=== PATIENT | female | born 1980 | race American Indian/Alaskan Native ===

== ENCOUNTER 2019-08-05 19:49 | Inpatient (IN) | payer OTHER ==
[2019-08-05] MEDS ORDERED: MORPHINE 4 MG/1 ML INJ IV ONE (20:51)
[2019-08-05] MEDS ORDERED: SODIUM CHLORIDE 0.9% 1000 ML 1,000 ML IV ONE (20:51)
[2019-08-05] MEDS ORDERED: ONDANSETRON 4 MG/2 ML INJ IV ONE (20:51)
[2019-08-05 21:03] LABS: Basophils # (Auto) 0.1 K/mm3 (0.0-0.1); Basophils % (Auto) 0.7 % (0.0-1.8); Eosinophils # (Auto) 0.1 K/mm3 (0.0-0.4); Eosinophils % (Auto) 1.3 % (0.0-4.3); Hematocrit 43.1 % (30.3-42.9); Hemoglobin 14.3 gm/dl (10.1-14.3); Lymphocytes # (Auto) 2.7 K/mm3 (1.2-5.4); Lymphocytes % (Auto) 30.6 % (13.4-35.0); Mean Corpuscular HGB Conc 33 % (30-34); Mean Corpuscular Volume 94 fl (79-97); Monocytes # (Auto) 0.5 K/mm3 (0.0-0.8); Monocytes % (Auto) 5.9 % (0.0-7.3); Platelet Count 299 K/mm3 (140-440); Red Blood Count 4.59 M/mm3 (3.65-5.03); Red Cell Distribution Width 13.7 % (13.2-15.2)
[2019-08-05 21:14] LABS: INR 1.01 (0.87-1.13)
[2019-08-05 21:15] LABS: Partial Thromboplastin Time 26.3 Sec. (24.2-36.6)
[2019-08-05 21:18] LABS: Alanine Aminotransferase 23 units/L (7-56); Albumin 4.2 g/dL (3.9-5); BUN/Creatinine Ratio 16; Blood Urea Nitrogen 13 mg/dL (7-17); Calcium 9.5 mg/dL (8.4-10.2); Hemolysis Index 39
--- NOTE | 2019-08-05 21:58 | Emergency Department Report ---
ED Abdominal Pain HPI - General Chief Complaint: Abdominal Pain Stated Complaint: ABDOMINAL PAIN Time Seen by Provider: 08/05/19 20:34 Source: patient, EMS Mode of arrival: Stretcher Limitations: No Limitations - History of Present Illness Initial Comments: 38-year-old female the past medical history of non-insulin depended diabetes, metformin, gallstones status post cholecystectomy presents to the hospital complaining of abdominal pain. Patient via ambulance will call out to the [facility] by her boyfriend with complaint of abdominal pain and bloody stools. Patient's eyes are closed and she answers some questions with one-word statements but not providing a fluid history of present illness. She has not had a menstrual cycle on at least 3 months. She's been having generalized abdominal pain and bloody stools for the last 2 days. She denies dysuria or vaginal bleeding. + nausea and vomiting Severity scale (0 -10): 10 - Related Data Allergies Allergy/AdvReac Type Severity Reaction Status Date / Time No Known Allergies Allergy Unverified 08/05/19 19:58 ED Review of Systems ROS: Stated complaint: ABDOMINAL PAIN Other details as noted in HPI Comment: Unobtainable due to pts medical conditions ED Past Medical Hx - Past Medical History Previous Medical History?: Yes Hx Diabetes: Yes - Surgical History Past Surgical History?: Yes Additional Surgical History: Gallstones - Social History Smoking Status: Current Every Day Smoker Substance Use Type: Alcohol ED Physical Exam - General Limitations: No Limitations - Other Other exam information: General: No acute distress Head: Atraumatic Eyes: normal appearance ENT: Moist mucous membranes Neck: Normal appearance, no midline tenderness Chest: Clear to auscultation bilaterally CV: Regular rate and rhythm Abdomen: Soft, normal bowel sounds, generalized abdominal tenderness, nondistended, no rebound or guarding Rectal: Guaiac negative brown stool without gross blood Back: Normal inspection Extremity: Normal inspection infection, full range of motion Neuro: Drowsy but arousable, no facial asymmetry, speech clear, no gross motor sensory deficit Psych: Appropriate behavior Skin: No rash ED Course Vital Signs 08/05/19 19:52 Pulse Rate 88 Respiratory 20 Rate Blood Pressure 124/78 O2 Sat by Pulse 94 Oximetry ED Medical Decision Making - Lab Data Result diagrams: 08/05/19 20:49 08/05/19 20:49 Lab Results 08/05/19 08/05/19 08/05/19 Range/Units 20:49 20:49 20:49 WBC 8.8 (4.5-11.0) K/mm3 RBC 4.59 (3.65-5.03) M/mm3 Hgb 14.3 (10.1-14.3) gm/dl Hct 43.1 H (30.3-42.9) % MCV 94 (79-97) fl MCH 31 (28-32) pg MCHC 33 (30-34) % RDW 13.7 (13.2-15.2) % Plt Count 299 (140-440) K/mm3 Lymph % (Auto) 30.6 (13.4-35.0) % [place] % (Auto) 5.9 (0.0-7.3) % Eos % (Auto) 1.3 (0.0-4.3) % Baso % (Auto) 0.7 (0.0-1.8) % Lymph # 2.7 (1.2-5.4) K/mm3 [place] # 0.5 (0.0-0.8) K/mm3 Eos # 0.1 (0.0-0.4) K/mm3 Baso # 0.1 (0.0-0.1) K/mm3 Seg Neutrophils % 61.5 (40.0-70.0) % Seg Neutrophils # 5.4 (1.8-7.7) K/mm3 PT 13.2 (12.2-14.9) Sec. INR 1.01 (0.87-1.13) APTT 26.3 (24.2-36.6) Sec. Sodium 135 L (137-145) mmol/L Potassium 4.1 (3.6-5.0) mmol/L Chloride 100.6 (98-107) mmol/L Carbon Dioxide 18 L (22-30) mmol/L Anion Gap 21 mmol/L BUN 13 (7-17) mg/dL Creatinine 0.8 (0.7-1.2) mg/dL Estimated GFR > 60 ml/min BUN/Creatinine Ratio 16 % Glucose 285 H (65-100) mg/dL POC Glucose (70-105) Calcium 9.5 (8.4-10.2) mg/dL Total Bilirubin 0.30 (0.1-1.2) mg/dL AST 24 (5-40) units/L ALT 23 (7-56) units/L Alkaline Phosphatase 131 H (35-129) units/L Total Protein 7.4 (6.3-8.2) g/dL Albumin 4.2 (3.9-5) g/dL Albumin/Globulin Ratio 1.3 % HCG, Quant (0-4) mIU/mL 08/05/19 08/05/19 Range/Units 20:49 22:01 WBC (4.5-11.0) K/mm3 RBC (3.65-5.03) M/mm3 Hgb (10.1-14.3) gm/dl Hct (30.3-42.9) % MCV (79-97) fl MCH (28-32) pg MCHC (30-34) % RDW (13.2-15.2) % Plt Count (140-440) K/mm3 Lymph % (Auto) (13.4-35.0) % [place] % (Auto) (0.0-7.3) % Eos % (Auto) (0.0-4.3) % Baso % (Auto) (0.0-1.8) % Lymph # (1.2-5.4) K/mm3 [place] # (0.0-0.8) K/mm3 Eos # (0.0-0.4) K/mm3 Baso # (0.0-0.1) K/mm3 Seg Neutrophils % (40.0-70.0) % Seg Neutrophils # (1.8-7.7) K/mm3 PT (12.2-14.9) Sec. INR (0.87-1.13) APTT (24.2-36.6) Sec. Sodium (137-145) mmol/L Potassium (3.6-5.0) mmol/L Chloride (98-107) mmol/L Carbon Dioxide (22-30) mmol/L Anion Gap mmol/L BUN (7-17) mg/dL Creatinine (0.7-1.2) mg/dL Estimated GFR ml/min BUN/Creatinine Ratio % Glucose (65-100) mg/dL POC Glucose 223 H (70-105) Calcium (8.4-10.2) mg/dL Total Bilirubin (0.1-1.2) mg/dL AST (5-40) units/L ALT (7-56) units/L Alkaline Phosphatase (35-129) units/L Total Protein (6.3-8.2) g/dL Albumin (3.9-5) g/dL Albumin/Globulin Ratio % HCG, Quant < 2 (0-4) mIU/mL - Radiology Data Radiology results: report reviewed CT ABDOMEN AND PELVIS WITH CONTRAST INDICATION: Unspecified abdominal pain. COMPARISON: No relevant prior imaging study available. TECHNIQUE: Axial, coronal and sagittal CT imaging of the abdomen and pelvis was performed after injection of 100 mL Omnipaque [address] scans at this location are performed using CT dose reduction for ALARA by means of automated exposure control. FINDINGS: LOWER CHEST: There is mild bibasilar atelectasis without an additional significant abnormality. LIVER: Generalized steatosis is noted without an additional significant abnormality. BILIARY: The gallbladder is surgically absent. No biliary ductal dilatation is seen. PANCREAS: Generalized edema and fluid is noted along the pancreas without an additional significant abnormality. SPLEEN: No significant abnormality. ADRENALS: No significant abnormality. KIDNEYS AND URETERS: No significant abnormality. GI TRACT: No significant abnormality of the stomach is identified. There is mild dilatation of the prox imal jejunum. The remainder of the small bowel is unremarkable. Mild sigmoid diverticulosis is noted without evidence of diverticulitis. No other significant abnormality of the colon is seen. The appendix is unremarkable. PERITONEUM: No free fluid. No free air. No fluid collection. LYMPH NODES: No significant adenopathy. VASCULATURE: No significant abnormality. URINARY BLADDER: No significant abnormality. REPRODUCTIVE ORGANS: No significant abnormality. ADDITIONAL FINDINGS: None. SKELETAL SYSTEM: Degenerative changes are seen along the spine and pelvis without an acute abnormality. IMPRESSION: 1. Acute uncomplicated pancreatitis. 2. Additional findings as above. - Medical Decision Making ct + for pancreatitis pt admits to daily etoh intake (denies hx of withdrawal sz). Last drink was today she denies previous hx of pancreatitis no signs of gi bleed in ed lft's normal, etoh level and ammonia added to labs hospitalist informed of admission - Differential Diagnosis gastroenteritis, obstruction, , fibroids, appendicitis, diverticul Critical Care Time: No Critical care attestation.: If time is entered above; I have spent that time in minutes in the direct care of this critically ill patient, excluding procedure time. ED Disposition Clinical Impression: Pancreatitis, Alcohol abuse, Diabetes Disposition: DC-09 OP ADMIT IP TO THIS HOSP Is pt being admited?: Yes Condition: Stable Instructions: Diabetes Mellitus Type 2 in Adults (ED) Time of Disposition: 22:51 (Dr Kaminski/hosp)
--- NOTE | 2019-08-05 22:35 | Cat Scan Report ---
CT ABDOMEN AND PELVIS WITH CONTRAST INDICATION: Unspecified abdominal pain. COMPARISON: No relevant prior imaging study available. TECHNIQUE: Axial, coronal and sagittal CT imaging of the abdomen and pelvis was performed after inje ction of 100 mL Omnipaque [address] scans at this location are performed using CT dose re duction for ALARA by means of automated exposure control. FINDINGS: LOWER CHEST: There is mild bibasilar atelectasis without an additional significant abnormality. LIVER: Generalized steatosis is noted without an additional significant abnormality. BILIARY: The gallbladder is surgically absent. No biliary ductal dilatation is seen. PANCREAS: Generalized edema and fluid is noted along the pancreas without an additional significant a bnormality. SPLEEN: No significant abnormality. ADRENALS: No significant abnormality. KIDNEYS AND URETERS: No significant abnormality. GI TRACT: No significant abnormality of the stomach is identified. There is mild dilatation of the pr oximal jejunum. The remainder of the small bowel is unremarkable. Mild sigmoid diverticulosis is note d without evidence of diverticulitis. No other significant abnormality of the colon is seen. The appe ndix is unremarkable. PERITONEUM: No free fluid. No free air. No fluid collection. LYMPH NODES: No significant adenopathy. VASCULATURE: No significant abnormality. URINARY BLADDER: No significant abnormality. REPRODUCTIVE ORGANS: No significant abnormality. ADDITIONAL FINDINGS: None. SKELETAL SYSTEM: Degenerative changes are seen along the spine and pelvis without an acute abnormalit y. IMPRESSION: 1. Acute uncomplicated pancreatitis. 2. Additional findings as above. Signer Name: Abdifatah Murguia MD Signed: 08/05/2019 10:30 PM Workstation Name: [id number]
[2019-08-05] MEDS ORDERED: LORazepam 2 MG TAB PO PRN ×2 (22:49)
[2019-08-05] MEDS ORDERED: THIAMINE 100 MG, FOLIC ACID 1 MG, MULTIPLE VITAMIN INJ, ADULT 10 ML in SODIUM CHLORIDE ... IV ONE (22:54)
[2019-08-05] MEDS ORDERED: ONDANSETRON 4 MG/2 ML INJ IV PRN (23:10)
--- NOTE | 2019-08-05 23:23 | History and Physical Report ---
History of Present Illness Date of examination: 08/05/19 Date of admission: 08/05/19 Chief complaint: Nausea vomiting and abdominal pain History of present illness: 38 year old female presenting to the emergency room today complaining of nausea vomiting and abdominal pain which started today. Patient admits that she drinks alcohol on a daily basis and last intake was earlier today. She denies any fever , no chills. Denies any diarrhea. Abdominal pain is said to be in the upper abdomen Past History Past Medical History: diabetes Past Surgical History: Other (history of gallstone ) Social history: smoking (smokes one pack of cigarettes daily), alcohol abuse (drinks alcohol on a daily basis, last alcohol intake was today.) Family history: diabetes (history of diabetes in grandfather) Medications and Allergies Allergies Allergy/AdvReac Type Severity Reaction Status Date / Time No Known Allergies Allergy Verified 08/05/19 23:03 Active Meds: Active Medications Heparin Sodium (Porcine) (Heparin) 5,000 unit SUB-Q Q8HR VALERIY Thiamine HCl 100 mg/ Folic Acid 1 mg/ Multivitamins/Minerals 10 ml/ Sodium Chloride 1,011.2 mls @ 250 mls/hr IV ONCE ONE Stop: 08/06/19 02:56 Lorazepam (Ativan) 2 mg PO Q1HR PRN PRN Reason: CIWA-Ar 8-15 Lorazepam (Ativan) 4 mg PO Q1HR PRN PRN Reason: CIWA-Ar 16-25 Morphine Sulfate (Morphine) 2 mg IV Q4H PRN PRN Reason: Pain, Moderate (4-6) Ondansetron HCl (Zofran) 4 mg IV Q8H PRN PRN Reason: Nausea And Vomiting Sodium Chloride (Sodium Chloride Flush Syringe 10 Ml) 10 ml IV BID VALERIY Sodium Chloride (Sodium Chloride Flush Syringe 10 Ml) 10 ml IV PRN PRN PRN Reason: LINE FLUSH Review of Systems Gastrointestinal: abdominal pain, nausea, vomiting Exam - Constitutional Vitals: Temp Pulse Resp BP Pulse Ox 98.4 F 88 20 124/78 94 08/05/19 22:57 08/05/19 19:52 08/05/19 19:52 08/05/19 19:52 08/05/19 19:52 General appearance: Present: no acute distress, obese - EENT Eyes: Present: PERRL, EOM intact ENT: hearing intact, clear oral mucosa - Neck Neck: Present: supple, normal ROM - Respiratory Respiratory effort: normal Respiratory: bilateral: CTA - Cardiovascular Rhythm: regular Heart Sounds: Present: S1 & S2 - Extremities Extremities: no ischemia, pulses intact, pulses symmetrical, No edema, Full ROM Peripheral Pulses: within normal limits - Abdominal General gastrointestinal: Present: soft, tender (mild tenderness in the epig astric region, abdomen is obese) - Integumentary Integumentary: Present: clear, warm, dry, normal turgor - Musculoskeletal Musculoskeletal: strength equal bilaterally - Psychiatric Psychiatric: appropriate mood/affect, intact judgment & insight, cooperative - Neurologic Neurologic: CNII-XII intact, moves all extremities Results - Labs CBC & Chem 7: 08/05/19 20:49 08/05/19 20:49 Labs: Abnormal lab results 08/05/19 08/05/19 08/05/19 Range/Units 20:49 20:49 20:49 Hct 43.1 H (30.3-42.9) % Sodium 135 L (137-145) mmol/L Carbon Dioxide 18 L (22-30) mmol/L Glucose 285 H (65-100) mg/dL POC Glucose (70-105) Alkaline Phosphatase 131 H (35-129) units/L Lipase 168 H (13-60) units/L 08/05/19 Range/Units 22:01 Hct (30.3-42.9) % Sodium (137-145) mmol/L Carbon Dioxide (22-30) mmol/L Glucose (65-100) mg/dL POC Glucose 223 H (70-105) Alkaline Phosphatase (35-129) units/L Lipase (13-60) units/L Assessment and Plan - Patient Problems (1) Pancreatitis Current Visit: Yes Status: Acute Plan to address problem: Readmitted to the medical floor. Patient will be made nothing by mouth. Pancreatitis probably secondary to the history of alcohol abuse (2) Alcohol abuse Current Visit: Yes Status: Acute Plan to address problem: We will monitor for withdrawal symptoms. Patient has been placed on CIWA protocol. she is counseled on quitting alcohol abuse (3) Diabetes Current Visit: Yes Status: Acute Plan to address problem: We'll monitor blood glucose closely. (4) DVT prophylaxis Current Visit: Yes Status: Acute Plan to address problem: Patient is placed on subcutaneous heparin (5) Full code status Current Visit: Yes Status: Acute
[2019-08-06 05:54] LABS: Basophils % (Auto) 0.3 % (0.0-1.8); Eosinophils # (Auto) 0.2 K/mm3 (0.0-0.4); Eosinophils % (Auto) 1.8 % (0.0-4.3); Hematocrit 42.7 % (30.3-42.9); Hemoglobin 14.1 gm/dl (10.1-14.3); Lymphocytes # (Auto) 2.3 K/mm3 (1.2-5.4); Lymphocytes % (Auto) 26.2 % (13.4-35.0); Mean Corpuscular HGB Conc 33 % (30-34); Mean Corpuscular Volume 96 fl (79-97); Monocytes # (Auto) 0.7 K/mm3 (0.0-0.8); Monocytes % (Auto) 7.6 % (0.0-7.3); Platelet Count 257 K/mm3 (140-440); Red Blood Count 4.47 M/mm3 (3.65-5.03); Red Cell Distribution Width 13.5 % (13.2-15.2)
[2019-08-06 06:08] LABS: BUN/Creatinine Ratio 20; Blood Urea Nitrogen 12 mg/dL (7-17); Hemolysis Index 4
[2019-08-06 06:13] LABS: Calcium 8.8 mg/dL (8.4-10.2)
[2019-08-06 06:33] LABS: INR 1.02 (0.87-1.13)
[2019-08-06] MEDS: HEPARIN 5,000 UNIT/1 ML VIAL SUB-Q SCH ×3 (06:42→21:30)
[2019-08-06 06:43] LABS: Benzodiazepines Screen,Urine PRESUMPTIVE NEGATIVE; Methadone Screen,Urine PRESUMPTIVE NEGATIVE; Opiate Screen,Urine PRESUMPTIVE NEGATIVE
[2019-08-06] MEDS: MORPHINE 2 MG/1 ML INJ IV PRN ×2 (06:44→12:06)
[2019-08-06 07:05] LABS: Amphetamine Screen,Urine PRESUMPTIVE POSITIVE; Cannabinoid Screen,Urine PRESUMPTIVE POSITIVE; Cocaine Screen,Urine PRESUMPTIVE POSITIVE
[2019-08-06 07:09] LABS: Bilirubin,Urine NEG (Negative); Blood,Urine NEG (Negative); Color,Urine Yellow (Yellow); Mucus,Urine FEW /HPF; Protein,Urine <15 mg/dL mg/dL (Negative); Urobilinogen,Urine < 2.0 mg/dL (<2.0)
--- NOTE | 2019-08-06 10:40 | Progress Note ---
Assessment and Plan Assessment and plan: Acute pancreatitis less abdominal pain Start clear liq diet Lipase level improved Diabetes mellitus type 2 accucheck qac and hs Polysubstance abuse with cocaine, marijuana, Amphetamines in Urine I counseled her on importance of quitting History Interval history: Less abdominal pain Hospitalist Physical - Physical exam Narrative exam: Gen: Not in acute distress, lying in bed HEENT: Normocephalic, atraumatic Neck: supple, no JVD Heart: S1 and S2 reg, no murmurs, rubs or gallop Lungs: Clear to auscultation bilaterally, Abd: soft, tender mid to upper abd,, non distended, normal BS, Ext: No edema, no clubbing, no cyanosis Neuro: Awake, alert, oriented X 3, moves all ext - Constitutional Vitals: Temp Pulse Resp BP Pulse Ox 98.1 F 87 20 141/73 98 08/06/19 05:15 08/06/19 05:15 08/06/19 05:15 08/06/19 05:15 08/06/19 05:15 General appearance: Present: no acute distress, obese Results - Labs CBC & Chem 7: 08/06/19 05:25 08/06/19 05:25 Labs: Laboratory Last Values WBC 8.9 K/mm3 (4.5-11.0) 08/06/19 05:25 RBC 4.47 M/mm3 (3.65-5.03) 08/06/19 05:25 Hgb 14.1 gm/dl (10.1-14.3) 08/06/19 05:25 Hct 42.7 % (30.3-42.9) 08/06/19 05:25 MCV 96 fl (79-97) 08/06/19 05:25 MCH 32 pg (28-32) 08/06/19 05:25 MCHC 33 % (30-34) 08/06/19 05:25 RDW 13.5 % (13.2-15.2) 08/06/19 05:25 Plt Count 257 K/mm3 (140-440) 08/06/19 05:25 Lymph % (Auto) 26.2 % (13.4-35.0) 08/06/19 05:25 [place] % (Auto) 7.6 % (0.0-7.3) H 08/06/19 05:25 Eos % (Auto) 1.8 % (0.0-4.3) 08/06/19 05:25 Baso % (Auto) 0.3 % (0.0-1.8) 08/06/19 05:25 Lymph # 2.3 K/mm3 (1.2-5.4) 08/06/19 05:25 [place] # 0.7 K/mm3 (0.0-0.8) 08/06/19 05:25 Eos # 0.2 K/mm3 (0.0-0.4) 08/06/19 05:25 Baso # 0.0 K/mm3 (0.0-0.1) 08/06/19 05:25 Seg Neutrophils % 64.1 % (40.0-70.0) 08/06/19 05:25 Seg Neutrophils # 5.7 K/mm3 (1.8-7.7) 08/06/19 05:25 PT 13.3 Sec. (12.2-14.9) 08/06/19 05:25 INR 1.02 (0.87-1.13) 08/06/19 05:25 APTT 26.3 Sec. (24.2-36.6) 08/05/19 20:49 Sodium 138 mmol/L (137-145) 08/06/19 05:25 Potassium 3.9 mmol/L (3.6-5.0) 08/06/19 05:25 Chloride 103.4 mmol/L (98-107) 08/06/19 05:25 Carbon Dioxide 22 mmol/L (22-30) 08/06/19 05:25 Anion Gap 17 mmol/L 08/06/19 05:25 BUN 12 mg/dL (7-17) 08/06/19 05:25 Creatinine 0.6 mg/dL (0.7-1.2) L 08/06/19 05:25 Estimated GFR > 60 ml/min 08/06/19 05:25 BUN/Creatinine Ratio 20 % 08/06/19 05:25 Glucose 191 mg/dL (65-100) H 08/06/19 05:25 POC Glucose 223 (70-105) H 08/05/19 22:01 Calcium 8.8 mg/dL (8.4-10.2) 08/06/19 05:25 Total Bilirubin 0.30 mg/dL (0.1-1.2) 08/05/19 20:49 AST 24 units/L (5-40) 08/05/19 20:49 ALT 23 units/L (7-56) 08/05/19 20:49 Alkaline Phosphatase 131 units/L (35-129) H 08/05/19 20:49 Ammonia 32.0 umol/L (25-60) 08/05/19 23:08 Total Protein 7.4 g/dL (6.3-8.2) 08/05/19 20:49 Albumin 4.2 g/dL (3.9-5) 08/05/19 20:49 Albumin/Globulin Ratio 1.3 % 08/05/19 20:49 Lipase 149 units/L (13-60) H 08/06/19 05:25 HCG, Quant < 2 mIU/mL (0-4) 08/05/19 20:49 Urine Color Yellow (Yellow) 08/06/19 06:15 Urine Turbidity Clear (Clear) 08/06/19 06:15 Urine pH 5.0 (5.0-7.0) 08/06/19 06:15 Ur Specific [place] 1.052 (1.003-1.030) H 08/06/19 06:15 Urine Protein <15 mg/dl mg/dL (Negative) 08/06/19 06:15 Urine Glucose (UA) >=500 mg/dL (Negative) 08/06/19 06:15 Urine Ketones Neg mg/dL (Negative) 08/06/19 06:15 Urine Blood Neg (Negative) 08/06/19 06:15 Urine Nitrite Neg (Negative) 08/06/19 06:15 Urine Bilirubin Neg (Negative) 08/06/19 06:15 Urine Urobilinogen < 2.0 mg/dL (<2.0) 08/06/19 06:15 Ur Leukocyte Esterase Neg (Negative) 08/06/19 06:15 Urine WBC (Auto) 1.0 /HPF (0.0-6.0) 08/06/19 06:15 Urine RBC (Auto) 2.0 /HPF (0.0-6.0) 08/06/19 06:15 U Epithel Cells (Auto) 6.0 /HPF (0-13.0) 08/06/19 06:15 Urine Mucus Few /HPF 08/06/19 06:15 Urine Opiates Screen Presumptive negative 08/06/19 06:15 Urine Methadone Screen Presumptive negative 08/06/19 06:15 Ur Barbiturates Screen Presumptive negative 08/06/19 06:15 Ur Phencyclidine Scrn Presumptive negative 08/06/19 06:15 Ur Amphetamines Screen Presumptive positive 08/06/19 06:15 U Benzodiazepines Scrn Presumptive negative 08/06/19 06:15 Urine Cocaine Screen Presumptive positive 08/06/19 06:15 U Marijuana (THC) Screen Presumptive positive 08/06/19 06:15 Drugs of Abuse Note Disclamer 08/06/19 06:15 Plasma/Serum Alcohol < 0.01 % (0-0.07) 08/05/19 23:08 Active Medications - Current Medications Current Medications: Generic Name Dose Route Start Last Admin Trade Name Freq PRN Reason Stop Dose Admin Heparin Sodium (Porcine) 5,000 unit 08/06/19 06:00 08/06/19 06:42 Heparin SUB-Q 5,000 unit Q8HR VALERIY Administration Lorazepam 2 mg 08/05/19 22:49 Ativan PO Q1HR PRN CIWA-Ar 8-15 Lorazepam 4 mg 08/05/19 22:49 Ativan PO Q1HR PRN CIWA-Ar 16-25 Morphine Sulfate 2 mg 08/05/19 23:10 08/06/19 06:44 Morphine IV 2 mg Q4H PRN Administration Pain, Moderate (4-6) Ondansetron HCl 4 mg 08/05/19 23:10 Zofran IV Q8H PRN Nausea And Vomiting Sodium Chloride 10 ml 08/06/19 10:00 08/06/19 10:01 Sodium Chloride Flush Syringe 10 Ml IV 10 ml BID VALERIY Administration Sodium Chloride 10 ml 08/05/19 23:10 Sodium Chloride Flush Syringe 10 Ml IV PRN PRN LINE FLUSH
[2019-08-06] MEDS ORDERED: METFORMIN HCL 500 MG PO SCH (15:45)
[2019-08-06] MEDS: metFORMIN 500 MG TAB PO SCH (17:38)
[2019-08-07] MEDS: MORPHINE 2 MG/1 ML INJ IV PRN ×2 (03:10→08:31)
[2019-08-07] MEDS: HEPARIN 5,000 UNIT/1 ML VIAL SUB-Q SCH ×2 (05:21→13:09)
[2019-08-07] MEDS: metFORMIN 500 MG TAB PO SCH ×2 (08:29→17:49)
[2019-08-07] MEDS ORDERED: oxyCODONE /ACETAMINOPHEN 5-325MG TAB PO PRN (08:55)
--- NOTE | 2019-08-07 16:11 | Discharge Summary ---
Providers - Providers Date of Admission: 08/05/19 22:55 Date of discharge: 08/07/19 Attending physician: GREGG SANTANA Primary care physician: KAL ALEJO MD Hospitalization Condition: Fair Hospital course: Patient is 38 year old female presented to the emergency room complained of nausea vomiting and abdominal pain. Patient admits that she drinks alcohol on a daily basis. She was seen and evaluated in Emergency Department. Lipase level was elevated. CT Abdomen confirmed acute pancreatitis. She was started on narcotics, iv fluids, admitted . She improved in few days with less abdominal pain and was discgharged home on 08/07. Her diabetes was managed with blood glucose cjhecks and continuing metformin. total time spent on discharge, 32 mins Disposition: DC- TO HOME OR SELFCARE - Discharge Diagnoses (1) Acute pancreatitis Status: Acute (2) Alcohol abuse Status: Acute (3) Diabetes Status: Acute (4) Hyponatremia Status: Acute Core Measure Documentation - Palliative Care Palliative Care/ Comfort Measures: Not Applicable - Core Measures Any of the following diagnoses?: none Exam - Constitutional Vitals: Temp Pulse Resp BP Pulse Ox 98.8 F 92 H 18 138/76 100 08/07/19 11:34 08/07/19 11:34 08/07/19 11:34 08/07/19 11:34 08/07/19 11:34 Plan Activity: no restrictions Diet: low fat, low cholesterol, low salt Plan of Treatment: 1.Follow up with PCP or [facility] in 1 week. 2.Avoid alcohol Follow up with: PRIMARY CAREMD [Primary Care Provider] - 7 Days Prescriptions: Docusate Sodium [Colace] 100 mg PO BID #30 capsule oxyCODONE /ACETAMINOPHEN [Percocet 5/325 mg] 1 tab PO Q6H PRN #10 tablet PRN Reason: Pain, Moderate (4-6)
[2019-08-07 17:59] VITALS: BP 118/73
== END 2019-08-07 19:05 | disposition home or self-care (01) | DRG 440 ==
LOC: ED 19:49 → 3A 22:55
PROVIDERS: ADMIT Internal Medicine Geriatric Medicine; ATTEND Internal Medicine
DX: K85.90 Acute pancreatitis without necrosis or infection, unspecified (principal); E11.9 Type 2 diabetes mellitus without complications; F10.10 Alcohol abuse, uncomplicated; F17.210 Nicotine dependence, cigarettes, uncomplicated; F15.10 Other stimulant abuse, uncomplicated; F14.10 Cocaine abuse, uncomplicated; F12.10 Cannabis abuse, uncomplicated; Z79.84 Long term (current) use of oral hypoglycemic drugs; Z90.49 Acquired absence of other specified parts of digestive tract
CPT/HCPCS: 36415; 74177; 80048; 80053; 80307; 80320; 81001; 82140; 82271; 82962; 83690; 84702; 85025; 85610; 85730; 99406; G0378; G0480; J1644; J2270; J2405; J3411; J7030; Q9967